=== PATIENT | male | born 1955 | race Caucasian/White ===

== ENCOUNTER → 2020-03-19 | Outpatient (CLI) | payer MEDICARE | END | disposition home or self-care (01) | LOC: CFH 13:37 | PROVIDERS: ATTEND Internal Medicine Cardiovascular Disease | DX: I35.8 Other nonrheumatic aortic valve disorders (principal); I11.9 Hypertensive heart disease without heart failure | CPT/HCPCS: 93306 ==

== ENCOUNTER 2021-02-09 06:06 | Day surgery (SDC) | payer MEDICARE ==
[~2021-02-09] VITALS: Ht 182.9 cm; Wt 102.3 kg
[~2021-02-09 06:06] MED LIST: ALPR1TAB2 PO
[2021-02-09 06:48] VITALS: BP 125/78
[2021-02-09] MEDS ORDERED: FLUMAZENIL 0.1 MG/1 ML, 5ML ONE (08:26)
[2021-02-09] MEDS ORDERED: FENTANYL PF 100 MCG/2ML ONE (08:26)
[2021-02-09] MEDS ORDERED: MIDAZOLAM 1 MG/ML, 5ML ONE (08:26)
[2021-02-09] MEDS ORDERED: NALOXONE 1 MG/ML, 2ML ONE (08:26)
== END 2021-02-09 11:00 | disposition home or self-care (01) ==
LOC: OUT 06:06 → EDSTATUS 08:00 → OUT 11:00
PROVIDERS: ATTEND Family Medicine
DX: M54.16 Radiculopathy, lumbar region (principal); M48.061 Spinal stenosis, lumbar region without neurogenic claudication; Z88.1 Allergy status to other antibiotic agents
CPT/HCPCS: 72148; 99156; 99157; J2250; J3010; J2310